=== PATIENT | female | born 1990 | race African-American/Black ===

== ENCOUNTER 2018-12-05 17:12 | Emergency (ER) | payer MEDICAID ==
[~2018-12-05] VITALS: Ht 170.2 cm; Wt 89.8 kg
[2018-12-05] MEDS ORDERED: levETIRAcetam 1,000mg/NS100ml 100 ML IVPB ONE ×2 (17:22→17:30)
--- NOTE | 2018-12-05 17:23 | NUR ---
ED Nurse Note: administering Keppra 1000mg per verbal order per Dr. Garcia
--- NOTE | 2018-12-05 17:25 | NUR ---
ED Nurse Note: Patient brought in by ambulance RA 34. patient was at the social security office and had aura, people guided her down to the floor, then patient had seizure. per EMS, total 20 mg of versed given, 10mg IM 5mg IN, 5mg IV. per EMS, patient had series of seizures, 30-45 seconds, then post ictal for 1 minute, then have another episode of seizures. Per EMS, sugar is 260 on the scene.
[2018-12-05 17:43] VITALS: BP 121/76
[2018-12-05 17:43] LABS: BASOPHILS % (AUTO) 1.1 % (0.0-2.0); EOSINOPHILS % (AUTO) 0.8 % (0.0-3.0); HEMATOCRIT 30.3 % (37.0-47.0); HEMOGLOBIN 9.7 G/DL (12.0-16.0); LYMPHOCYTES % (AUTO) 33.2 % (20.0-45.0); MEAN CORPUSCULAR VOLUME 85 FL (80-99); MONOCYTES % (AUTO) 7.4 % (1.0-10.0); NEUTROPHILS % (AUTO) 57.5 % (45.0-75.0); PLATELET COUNT 336 K/UL (150-450); RED BLOOD COUNT 3.57 M/UL (4.20-5.40); RED CELL DISTRIBUTION WIDTH 13.5 % (11.6-14.8)
--- NOTE | 2018-12-05 17:53 | Emergency Room Report ---
History of Present Illness General Chief Complaint: Seizure Source: Patient Present Illness HPI This is a 27-year-old female presented after multiple seizures. Patient a prior history of seizure disorder. She is poorly taking Keppra 1000 mg twice a day. Patient had been given a large dose of Versed by EMS over the past several seizures. Patient was noted to have brief episodes of shaking episodes predominately to the upper extremities which resulted with loss of consciousness. Allergies: Coded Allergies: No Known Allergies (Unverified , 12/05/18) Patient History Now: No Reviewed Nursing Documentation: PMH: Agreed; PSxH: Agreed Nursing Documentation-PMH Hx Seizures: Yes Physical Exam Vital Signs Date Time Temp Pulse Resp B/P (MAP) Pulse Ox O2 Delivery O2 Flow Rate FiO2 12/05/18 17:17 68 16 130/80 (97) 98 Room Air 12/05/18 17:43 97.8 Sp02 EP Interpretation: reviewed, normal General Appearance: normal inspection, no apparent distress, alert, GCS 15 Head: atraumatic ENT: normal ENT inspection, hearing grossly normal, normal voice Neck: normal inspection, full range of motion, supple, no bony tend Respiratory: normal inspection, lungs clear, normal breath sounds, no respiratory distress, no retraction, no wheezing Cardiovascular #1: regular rate, rhythm, no edema Gastrointestinal: normal inspection, normal bowel sounds, non tender, soft, no guarding, no hernia Genitourinary: no CVA tenderness Musculoskeletal: normal inspection, back normal, normal range of motion Neurologic: normal inspection, alert, oriented x3, responsive, speech normal Psychiatric: normal inspection, judgement/insight normal, mood/affect normal Medical Decision Making Diagnostic Impression: Primary Impression: Epileptic seizure, generalized Additional Impression: Seizure disorder ER Course Patient presented after multiple seizures. Differential diagnosis include was not limited to status epilepticus, electrolyte abnormality, , pseudoseizures, among others. Patient was noted to have prior history of seizure disorder. She states she has been having these since her teens. Patient was noted to have multiple episodes of seizure activity which involved deviation of the head as well as movements of the upper extremities primarily. These lasted several seconds at a time. Patient had a very brief postictal periods. Patient had continued to have episodes despite being given 20 of Versed in the field in multiple doses. Patient was noted to be awake alert and able to converse well.. Patient and patient's visit to confirm that she has had multiple episodes of seizure- activity in the past. She is currently scheduled for a vagus nerve stimulator as well as multiple surgeries on her neck at [facility]. Patient was advised due to multiple seizure episodes that she should be admitted to the hospital. Patient was advised risk benefits and alternatives of the procedure and she indicated understanding and still wanted to leave.. Patient advised to return if she changed her mind. Patient appears to be competent to leave AGAINST MEDICAL ADVICE. Patient left without receiving medication prescriptions. Labs Test 12/05/18 17:25 12/05/18 18:24 White Blood Count 8.0 K/UL (4.8-10.8) Red Blood Count 3.57 M/UL (4.20-5.40) Hemoglobin 9.7 G/DL (12.0-16.0) Hematocrit 30.3 % (37.0-47.0) Mean Corpuscular Volume 85 FL (80-99) Mean Corpuscular Hemoglobin 27.2 PG (27.0-31.0) Mean Corpuscular Hemoglobin Concent 32.0 G/DL (32.0-36.0) Red Cell Distribution Width 13.5 % (11.6-14.8) Platelet Count 336 K/UL (150-450) Mean Platelet Volume 6.3 FL (6.5-10.1) Neutrophils (%) (Auto) 57.5 % (45.0-75.0) Lymphocytes (%) (Auto) 33.2 % (20.0-45.0) Monocytes (%) (Auto) 7.4 % (1.0-10.0) Eosinophils (%) (Auto) 0.8 % (0.0-3.0) Basophils (%) (Auto) 1.1 % (0.0-2.0) Sodium Level 141 MMOL/L (136-145) Potassium Level 3.5 MMOL/L (3.5-5.1) Chloride Level 108 MMOL/L (98-107) Carbon Dioxide Level 20 MMOL/L (21-32) Anion Gap 13 mmol/L (5-15) Blood Urea Nitrogen 16 mg/dL (7-18) Creatinine 0.9 MG/DL (0.55-1.30) Estimat Glomerular Filtration Rate > 60 mL/min (>60) Glucose Level 92 MG/DL (74-106) Calcium Level 9.0 MG/DL (8.5-10.1) Total Bilirubin 0.2 MG/DL (0.2-1.0) Aspartate Amino Transf (AST/SGOT) 17 U/L (15-37) Alanine Aminotransferase (ALT/SGPT) 16 U/L (12-78) Alkaline Phosphatase 51 U/L (46-116) Troponin I 0.000 ng/mL (0.000-0.056) Total Protein 7.1 G/DL (6.4-8.2) Albumin 3.5 G/DL (3.4-5.0) Globulin 3.6 g/dL Albumin/Globulin Ratio 1.0 (1.0-2.7) Serum Alcohol < 3 mg/dL Urine Color Yellow Urine Appearance Clear Urine pH 8 (4.5-8.0) Urine Specific [place] 1.010 (1.005-1.035) Urine Protein Negative (NEGATIVE) Urine Glucose (UA) Negative (NEGATIVE) Urine Ketones Negative (NEGATIVE) Urine Blood Negative (NEGATIVE) Urine Nitrite Negative (NEGATIVE) Urine Bilirubin Negative (NEGATIVE) Urine Urobilinogen Normal MG/DL (0.0-1.0) Urine Leukocyte Esterase Negative (NEGATIVE) Urine RBC 0-2 /HPF (0 - 2) Urine WBC 0-2 /HPF (0 - 2) Urine Squamous Epithelial Cells Few /LPF (NONE/OCC) Urine Bacteria None /HPF (NONE) Urine Opiates Screen Negative (NEGATIVE) Urine Barbiturates Screen Negative (NEGATIVE) Phencyclidine (PCP) Screen Negative (NEGATIVE) Urine Amphetamines Screen Negative (NEGATIVE) Urine Benzodiazepines Screen Positive (NEGATIVE) Urine Cocaine Screen Negative (NEGATIVE) Urine Marijuana (THC) Screen Positive (NEGATIVE) Last Vital Signs Date Time Temp Pulse Resp B/P (MAP) Pulse Ox O2 Delivery O2 Flow Rate FiO2 12/05/18 17:43 97.8 88 19 121/76 100 Room Air Status: improved Disposition: AGAINST MEDICAL ADVICE Condition: Stable Scripts Acetaminophen* (ACETAMINOPHEN EXTRA STRENGTH*) 500 Mg Tablet 500 MG ORAL Q8H PRN for Fever/Headache/Mild Pain, #30 TAB Prov: Baltazar Payne MD 12/05/18 Levetiracetam (KEPPRA) 1,000 Mg Tablet 1000 MG ORAL DAILY, #30 TAB 0 Refills Prov: Baltazar Payne MD 12/05/18 Baltazar Payne MD Dec 05, 2018 17:53
[2018-12-05 18:02] LABS: ANION GAP 13 mmol/L (5-15); BLOOD UREA NITROGEN 16 mg/dL (7-18); CARBON DIOXIDE 20 MMOL/L (21-32); CHLORIDE 108 MMOL/L (98-107); CREATININE 0.9 MG/DL (0.55-1.30); POTASSIUM 3.5 MMOL/L (3.5-5.1); SODIUM 141 MMOL/L (136-145)
[2018-12-05 18:06] LABS: ALANINE AMINOTRANSFERASE 16 U/L (12-78); ALBUMIN 3.5 G/DL (3.4-5.0); ALKALINE PHOSPHATASE 51 U/L (46-116); ASPARTATE AMINO TRANSFERASE 17 U/L (15-37); BILIRUBIN,TOTAL 0.2 MG/DL (0.2-1.0)
--- NOTE | 2018-12-05 18:22 | NUR ---
ED Nurse Note: UA SENT TO LAB patient was able to use bedside commode with RN assistance.
[2018-12-05] MEDS ORDERED: Acetaminophen 500mg (ES) tab ORAL ONE (18:30)
[2018-12-05 18:37] LABS: APPEARANCE,URINE CLEAR; BILIRUBIN, URINE NEGATIVE (NEGATIVE); GLUCOSE, URINE (UA) NEGATIVE (NEGATIVE); KETONES,URINE NEGATIVE (NEGATIVE); LEUKOCYTE ESTERASE ,URINE NEGATIVE (NEGATIVE); NITRITE,URINE NEGATIVE (NEGATIVE); PH,URINE 8 (4.5-8.0); PROTEIN,URINE NEGATIVE (NEGATIVE); UROBILINOGEN,URINE NORMAL MG/DL (0.0-1.0)
--- NOTE | 2018-12-05 18:40 | NUR ---
ED Nurse Note: patient had 1 episode of 30 minutes seizure, DR. Payne by the bedside.
[2018-12-05 18:42] LABS: COLOR,URINE YELLOW
--- NOTE | 2018-12-05 19:03 | NUR ---
ED Nurse Note: attempted to do belongings list, patient reports she does not want to stay here over night, patient wants to leave AMA. Dr. Garcia made aware.
--- NOTE | 2018-12-05 19:09 | NUR ---
HAND-OFF: Report given to Brian Merida RN. patient is a/o x4.
[2018-12-05 19:15] VITALS: BP 133/77
--- NOTE | 2018-12-05 19:15 | NUR ---
ED Nurse Note: received pt from renetta. patient resting comfortably in bed. assisted pt to bathroom. pt ambulated steady. ao4. nad. vss
[2018-12-05] MEDS ORDERED: KEPPRA1000 MG ORAL (19:32)
[2018-12-05] MEDS ORDERED: ACETAMINOPHEN500 M3 ORAL (19:33)
[2018-12-05 19:40] VITALS: BP 133/77
--- NOTE | 2018-12-05 19:40 | NUR ---
AMA: SEE AMA FORM. pt left with boyfriend. ao4. nad. stable condition. explained risk and benefits x3; pt still wants to go go home. ambulated steady with all belongigns.
== END 2018-12-05 19:40 | disposition left against medical advice (07) ==
LOC: EDBD 17:12 → EMR 18:00 → 2W 18:13 → UNDOADMIN 18:13 → EDBEDREQ 18:35 → EMR 19:40 → CANBEDREQ 19:48
DX: G40.409 Other generalized epilepsy and epileptic syndromes, not intractable, without status epilepticus (principal)
CPT/HCPCS: 36415; 80053; 80307; 80329; 81001; 84484; 85025; 93005; 96374; 99284; J1953